=== PATIENT | male | born 1995 | race Two or more races ===

== ENCOUNTER 2016-12-23 04:58 | Emergency (ER) | payer SELFPAY ==
[~2016-12-23] VITALS: Ht 170.2 cm; Wt 68.0 kg
[2016-12-23] MEDS ORDERED: PROMETHAZINE 25 MG/ML, 1ML ONE (05:17)
[2016-12-23] MEDS ORDERED: PROMETHAZINE 25 MG/ML, 1ML IM ONE (05:30)
[2016-12-23] MEDS ORDERED: SODIUM CHLORIDE 0.9% 1,000ML IVBOLUS ONE (12:00)
[2016-12-23] MEDS ORDERED: SODIUM CHLORIDE FLUSH 10ML SYR IVF ONE (12:00)
[2016-12-23 12:44] LABS: DAU SCREEN DISCLAIMER
[2016-12-23 12:59] VITALS: BP 110/65
== END 2016-12-23 13:01 | disposition home or self-care (01) ==
LOC: ED 12:55
DX: F10.121 Alcohol abuse with intoxication delirium (principal); R11.2 Nausea with vomiting, unspecified
CPT/HCPCS: 36415; 80307; 96360; 96372; 99284; J2550; J7030